=== PATIENT | female | born 1960 | race Caucasian/White ===

== ENCOUNTER 2019-05-06 11:43 | Emergency (ER) | payer OTHER ==
[~2019-05-06] VITALS: Ht 149.9 cm; Wt 37.6 kg
[2019-05-06] MEDS ORDERED: ZOLOFT25 MG PO (12:06)
[2019-05-06] MEDS ORDERED: BENTYL 10 MG CA10 M1 PO (12:06)
[2019-05-06] MEDS ORDERED: ASPIR 8181 MG PO (12:06)
[2019-05-06] MEDS ORDERED: LOMOTIL TABLET1 EACH PO (12:33)
[2019-05-06] MEDS ORDERED: ZANTAC 150MG T150 MG PO (12:36)
[2019-05-06 15:59] VITALS: BP 123/63
== END 2019-05-06 16:00 | disposition home or self-care (01) ==
LOC: M.ERS 11:43
DX: M71.21 Synovial cyst of popliteal space [Baker], right knee (principal)